=== PATIENT | male | born 1935 | race Caucasian/White ===

== ENCOUNTER 2017-09-02 18:18 | Emergency (ER) | payer MEDICARE ==
[~2017-09-02] VITALS: Ht 180.3 cm; Wt 126.6 kg
[2017-09-02] MEDS ORDERED: MAGNESIUM/ALUMINUM/SIMETHICONE 30 ML UDC PO ONE (19:30)
[2017-09-02] MEDS ORDERED: LIDOCAINE VISC 2% SOLN 15 ML UDC PO ONE (19:30)
[2017-09-02] MEDS ORDERED: BELLADONNA ALK/PHENOBARBITAL 5 ML UDC PO ONE (19:30)
[2017-09-02 21:05] VITALS: BP 141/77
== END 2017-09-02 21:00 | disposition home or self-care (01) ==
LOC: FSED 18:18
DX: K21.9 Gastro-esophageal reflux disease without esophagitis (principal); R11.0 Nausea; Z90.49 Acquired absence of other specified parts of digestive tract; I10 Essential (primary) hypertension; Z86.73 Personal history of transient ischemic attack (TIA), and cerebral infarction without residual deficits
CPT/HCPCS: 71046; 93005; 99283